=== PATIENT | female | born 1995 | race Caucasian/White ===

== ENCOUNTER 2019-02-02 12:22 | Inpatient (IN) | payer OTHER ==
[2019-02-02 13:12] LABS: ADD MAN DIFF? NO
[2019-02-02] MEDS: FAMOTIDINE 20 MG INJ IV (13:12)
[2019-02-02] MEDS: ONDANSETRON 4 MG INJ IV ×2 (13:12→21:55)
[2019-02-02] MEDS: LORAZEPAM 2 MG INJ IV (13:12)
[2019-02-02] MEDS: SOD CHLORIDE 0.9% 1,000 ML IV ×2 (13:13→21:11)
[2019-02-02 13:14] LABS: BASOPHILS % 0.3 % (0.0-2.0); HEMATOCRIT 40.6 % (37.0-47.0); HEMOGLOBIN 13.6 g/dl (12.0-16.0); LYMPHOCYTES # 1.6 10^3/ul (0.8-2.9); LYMPHOCYTES % 18.1 % (15.0-51.0); MEAN CORPUSCULAR HGB CONC 33.5 g/dl (32.0-37.0); MEAN CORPUSCULAR VOLUME 89.6 fl (82.0-101.0); MEAN PLATELET VOLUME 10.1 fl (7.4-10.4); MONOCYTE # 0.5 10^3/ul (0.3-0.9); MONOCYTES % 5.4 % (0.0-11.0); NEUTROPHIL # 6.7 10^3/ul (1.6-7.5); NEUTROPHILS % 75.6 % (39.0-77.0); PLATELET COUNT 293 10^3/UL (140-415); RED BLOOD COUNT 4.53 10^6/ul (4.20-5.40); RED CELL DISTRIBUTION WIDTH 11.9 % (11.5-14.5)
[2019-02-02 13:14] LABS: WHITE BLOOD COUNT 8.9 10^3/ul (4.8-10.8)
[2019-02-02 13:23] LABS: ADD UMIC YES; UR ASCORBIC ACID NEGATIVE (NEGATIVE); UR BILIRUBIN (Dip) NEGATIVE (NEGATIVE); UR BLOOD (Dip) NEGATIVE (NEGATIVE); UR CLARITY CLEAR (CLEAR); UR COLOR AMBER (YELLOW); UR GLUCOSE (Dip) NEGATIVE (NEGATIVE); UR KETONES (Dip) NEGATIVE (NEGATIVE); UR LEUKOCYTE ESTERASE (Dip) NEGATIVE Leu/ul (NEGATIVE); UR NITRITE (Dip) POSITIVE (NEGATIVE); UR RBC 3 /HPF (0-5); UR SPECIFIC GRAVITY (Dip) 1.017 (1.003-1.030); UR SQUAMOUS EPITHELIAL CELL FEW /HPF (FEW); UR TOTAL PROTEIN (Dip) NEGATIVE (NEGATIVE); UR UROBILINOGEN (Dip) NEGATIVE (NEGATIVE); UR WBC 4 /HPF (0-5)
[2019-02-02 13:33] LABS: ALANINE AMINOTRANSFERASE 15 IU/L (13-69); ALBUMIN 4.5 g/dl (3.3-4.9); ALBUMIN/GLOBULIN RATIO 1.45; ALKALINE PHOSPHATASE 73 IU/L (42-121); ANION GAP 12 (5-13); ASPARTATE AMINO TRANSFERASE 22 IU/L (15-46); BILIRUBIN,INDIRECT 0.7 mg/dl (0-1.1); BILIRUBIN,TOTAL 0.7 mg/dl (0.2-1.3); BLOOD UREA NITROGEN 12 mg/dl (7-20); CALCIUM 9.6 mg/dl (8.4-10.2); CARBON DIOXIDE 22 mmol/L (21-31); CHLORIDE 105 mmol/L (97-110); CREATININE 0.67 mg/dl (0.44-1.00); Estimated GFR > 60 mL/min (>60); GLUCOSE 123 mg/dl (70-220); LIPASE 74 U/L (23-300); POTASSIUM 3.2 mmol/L (3.5-5.1); SODIUM 139 mmol/L (135-144); TOTAL PROTEIN 7.6 g/dl (6.1-8.1)
[2019-02-02 14:39] LABS: PROTIME 13.3 Sec (11.9-14.9)
[2019-02-02 14:40] LABS: PARTIAL THROMBOPLASTIN TIME 32.2 Sec (23.0-35.0)
[2019-02-02] MEDS: POTASSIUM CHLORIDE (SR) 20 MEQ TAB PO (14:48)
[2019-02-02] MEDS: CEPHALEXIN 500 MG CAP PO (14:48)
[2019-02-02] MEDS: ACETYLCYSTEINE INJ 9,000 MG in DEXTROSE 5% 200 ML IV (15:06)
[2019-02-02] MEDS: ACETYLCYSTEINE INJ 3,000 MG in DEXTROSE 5% 500 ML IV (16:10)
[2019-02-02 17:10] LABS: ETHANOL < 10.0 mg/dl (0-0)
[2019-02-02] MEDS: LEVOFLOXACIN 500MG/D5W (PMX) 100 ML IVPB (21:29)
[2019-02-02] MEDS: ACETAMINOPHEN 325 MG TAB PO (21:53)
[2019-02-02] MEDS: ACETYLCYSTEINE INJ 6,000 MG in DEXTROSE 5% 1,000 ML IV (22:18)
[2019-02-03 01:57] LABS: ACETAMINOPHEN < 10.0 ug/ml (10.0-30.0)
[2019-02-03] MEDS: SOD CHLORIDE 0.9% 1,000 ML IV ×2 (05:32→19:10)
[2019-02-03] MEDS: KETOROLAC 15 MG INJ IV ×3 (05:35→23:06)
[2019-02-03 05:49] LABS: ADD MAN DIFF? NO
[2019-02-03 05:51] LABS: HAAIG REFLEX REFLEX FILED
[2019-02-03 05:58] LABS: BASOPHILS % 0.5 % (0.0-2.0); EOSINOPHILS % 0.5 % (0.0-7.0); HEMATOCRIT 40.1 % (37.0-47.0); HEMOGLOBIN 13.6 g/dl (12.0-16.0); LYMPHOCYTES # 1.7 10^3/ul (0.8-2.9); LYMPHOCYTES % 20.4 % (15.0-51.0); MEAN CORPUSCULAR HEMOGLOBIN 30.3 pg (29.0-33.0); MEAN CORPUSCULAR HGB CONC 33.9 g/dl (32.0-37.0); MEAN CORPUSCULAR VOLUME 89.3 fl (82.0-101.0); MEAN PLATELET VOLUME 10.4 fl (7.4-10.4); MONOCYTE # 0.5 10^3/ul (0.3-0.9); MONOCYTES % 6.2 % (0.0-11.0); NEUTROPHIL # 6.1 10^3/ul (1.6-7.5); NEUTROPHILS % 71.9 % (39.0-77.0); PLATELET COUNT 281 10^3/UL (140-415); RED BLOOD COUNT 4.49 10^6/ul (4.20-5.40); RED CELL DISTRIBUTION WIDTH 12.1 % (11.5-14.5)
[2019-02-03 05:58] LABS: WHITE BLOOD COUNT 8.4 10^3/ul (4.8-10.8)
[2019-02-03 06:15] LABS: INR 1.09; PROTIME 14.2 Sec (11.9-14.9); PT RATIO 1.1
[2019-02-03 06:42] LABS: ACETAMINOPHEN < 10.0 ug/ml (10.0-30.0)
[2019-02-03 06:54] LABS: ANION GAP 11 (5-13); BLOOD UREA NITROGEN 4 mg/dl (7-20); CALCIUM 9.7 mg/dl (8.4-10.2); CARBON DIOXIDE 20 mmol/L (21-31); CHLORIDE 109 mmol/L (97-110); CREATININE 0.49 mg/dl (0.44-1.00); Estimated GFR > 60 mL/min (>60); GLUCOSE 95 mg/dl (70-220); POTASSIUM 3.6 mmol/L (3.5-5.1); SODIUM 140 mmol/L (135-144)
[2019-02-03 07:19] LABS: HEPATITIS B SURFACE ANTIGEN NEGATIVE (NEGATIVE)
[2019-02-03 07:37] LABS: HEPATITIS B CORE ANTIBODY NEGATIVE (NEGATIVE); HEPATITIS C VIRAL ANTIBODY NEGATIVE (NEGATIVE)
[2019-02-03] MEDS: PANTOPRAZOLE (EC) 40 MG TAB PO (09:37)
[2019-02-03 12:32] LABS: ADD UMIC YES; UR ASCORBIC ACID NEGATIVE (NEGATIVE); UR BILIRUBIN (Dip) NEGATIVE (NEGATIVE); UR BLOOD (Dip) 1+ mg/dL (NEGATIVE); UR CLARITY CLEAR (CLEAR); UR COLOR YELLOW (YELLOW); UR GLUCOSE (Dip) NEGATIVE (NEGATIVE); UR KETONES (Dip) 2+ mg/dL (NEGATIVE); UR LEUKOCYTE ESTERASE (Dip) 1+ Leu/ul (NEGATIVE); UR NITRITE (Dip) NEGATIVE (NEGATIVE); UR RBC 2 /HPF (0-5); UR SPECIFIC GRAVITY (Dip) 1.012 (1.003-1.030); UR TOTAL PROTEIN (Dip) NEGATIVE (NEGATIVE); UR UROBILINOGEN (Dip) NEGATIVE (NEGATIVE); UR WBC 3 /HPF (0-5)
[2019-02-03 14:05] LABS: ALANINE AMINOTRANSFERASE 14 IU/L (13-69); ALBUMIN 4.1 g/dl (3.3-4.9); ALKALINE PHOSPHATASE 68 IU/L (42-121); ASPARTATE AMINO TRANSFERASE 18 IU/L (15-46); TOTAL PROTEIN 6.9 g/dl (6.1-8.1)
[2019-02-03 15:28] LABS: LIPASE 89 U/L (23-300)
[2019-02-03 15:28] LABS: AMYLASE 87 U/L (11-123)
[2019-02-03 15:32] LABS: ACETAMINOPHEN < 10.0 ug/ml (10.0-30.0)
[2019-02-03] MEDS: LEVOFLOXACIN 500MG/D5W (PMX) 100 ML IVPB (16:51)
[2019-02-04 05:37] LABS: INR 1.07; PT RATIO 1.1
[2019-02-04 05:41] LABS: ALANINE AMINOTRANSFERASE 18 IU/L (13-69); ALBUMIN 4.3 g/dl (3.3-4.9); ALBUMIN/GLOBULIN RATIO 1.48; ALKALINE PHOSPHATASE 60 IU/L (42-121); ANION GAP 11 (5-13); ASPARTATE AMINO TRANSFERASE 20 IU/L (15-46); BLOOD UREA NITROGEN 8 mg/dl (7-20); CALCIUM 9.6 mg/dl (8.4-10.2); CARBON DIOXIDE 22 mmol/L (21-31); CHLORIDE 108 mmol/L (97-110); CREATININE 0.51 mg/dl (0.44-1.00); Estimated GFR > 60 mL/min (>60); GLUCOSE 97 mg/dl (70-220); POTASSIUM 3.9 mmol/L (3.5-5.1); SODIUM 141 mmol/L (135-144); TOTAL PROTEIN 7.2 g/dl (6.1-8.1)
[2019-02-04] MEDS: SOD CHLORIDE 0.9% 1,000 ML IV ×2 (05:58→14:28)
[2019-02-04] MEDS: PANTOPRAZOLE (EC) 40 MG TAB PO (09:00)
[2019-02-04] MEDS: BUPIVACAINE 0.25%/EPI (SDV) 30 ML INJ (12:02)
[2019-02-04] MEDS: LIDOCAINE 1% (MPF) 30 ML INJ (12:02)
[2019-02-04] MEDS: metroNIDAZOLE 500 MG/NS (PMX) 100 ML IVPB (12:22)
[2019-02-04] MEDS ORDERED: PROPOFOL 20 ML (13:02)
[2019-02-04] MEDS ORDERED: LIDOCAINE 2% (SDV) 5 ML INJ (13:02)
[2019-02-04] MEDS ORDERED: GLYCOPYRROLATE 0.4 MG INJ ×2 (13:02→13:31)
[2019-02-04] MEDS ORDERED: MEPERIDINE 100 MG INJ (13:02)
[2019-02-04] MEDS ORDERED: SUCCINYLCHOLINE CHLORIDE 100 MG/5 ML SYG IV (13:02)
[2019-02-04] MEDS ORDERED: NEOSTIGMINE 3 MG/3 ML SYRINGE (13:02)
[2019-02-04] MEDS ORDERED: ROCURONIUM 50 MG INJ (13:02)
[2019-02-04] MEDS ORDERED: CEFAZOLIN 1 GM INJ (13:17)
[2019-02-04] MEDS ORDERED: ONDANSETRON 4 MG INJ (13:31)
[2019-02-04] MEDS ORDERED: METOCLOPRAMIDE 10 MG INJ (13:31)
[2019-02-04] MEDS ORDERED: FENTAnyl 50 MCG/ML VIAL IV ×2 (14:00)
[2019-02-04] MEDS ORDERED: DIPHENHYDRAMINE 50 MG INJ IV (14:00)
[2019-02-04] MEDS ORDERED: HYDROmorphONE 1 MG/5 ML IV SYRINGE IV ×3 (14:00)
[2019-02-04] MEDS ORDERED: HYDROmorphONE 0.5 MG/0.5 ML SYG IV (14:00)
[2019-02-04] MEDS ORDERED: ACETAMINOPHEN 500 MG TAB PO (14:00)
[2019-02-04] MEDS ORDERED: MEPERIDINE 25 MG INJ IV (14:00)
[2019-02-04] MEDS ORDERED: METOCLOPRAMIDE 10 MG INJ IV (14:00)
[2019-02-04] MEDS ORDERED: MIDAZOLAM 1 MG/ML 2 ML INJ IV (14:00)
[2019-02-04] MEDS: ONDANSETRON 4 MG INJ IV (14:15)
[2019-02-04] MEDS: FENTAnyl 50 MCG/ML VIAL IV (14:15)
[2019-02-04] MEDS: HYDROCODONE/APAP (5/325) TAB PO (19:29)
[2019-02-04] MEDS: KETOROLAC 15 MG INJ IV (22:36)
[2019-02-05] MEDS: SOD CHLORIDE 0.9% 1,000 ML IV (02:01)
[2019-02-05] MEDS: HYDROCODONE/APAP (5/325) TAB PO ×2 (07:38→14:08)
[2019-02-05] MEDS ORDERED: SENNA TAB PO (09:04)
[2019-02-05] MEDS: PANTOPRAZOLE (EC) 40 MG TAB PO (09:50)
[2019-02-05] MEDS ORDERED: ONDANSETRON 4 MG INJ IV (10:45)
[2019-02-05] MEDS ORDERED: BISACODYL 10 MG SUPP PR (11:00)
[2019-02-05] MEDS: MAGNESIUM HYDROXIDE 30ML CUP PO (12:59)
[2019-02-05] MEDS: IBUPROFEN 400 MG TAB PO (15:34)
== END 2019-02-05 19:10 | disposition home or self-care (01) | DRG 908 ==
LOC: MS1 02-03 15:12 → FTE 12:22 → MS1 02-04 16:31 → TEL 14:57
PROC: 0DTJ4ZZ Resection of Appendix, Percutaneous Endoscopic Approach (ICD-10-PCS; principal; 2019-02-04 12:00)
DX: T39.1X1A Poisoning by 4-Aminophenol derivatives, accidental (unintentional), initial encounter (principal); N39.0 Urinary tract infection, site not specified; K35.80 Unspecified acute appendicitis; E87.6 Hypokalemia; F10.10 Alcohol abuse, uncomplicated; K38.1 Appendicular concretions; K59.00 Constipation, unspecified
CPT/HCPCS: 36415; 71045; 74176; 76775; 80048; 80053; 80076; 80307; 81001; 81025; 82150; 83690; 85025; 85610; 85730; 86704; 86709; 86803; 87086; 87340; 88304; 93005; 96374; 96375; 99285-25

== ENCOUNTER 2019-03-31 17:10 | Emergency (ER) | payer OTHER ==
[2019-03-31] MEDS: SOD CHLORIDE 0.9% 1,000 ML IV (19:53)
[2019-03-31] MEDS: LEVALBUTEROL (NEB) 1.25 MG/0.5 ML AMP INH (19:58)
[2019-03-31] MEDS: IPRATROPIUM (NEB) 0.5 MG/2.5 ML AMP INH (19:58)
[2019-03-31 20:04] LABS: ADD MAN DIFF? NO
[2019-03-31 20:06] LABS: WHITE BLOOD COUNT 6.8 10^3/ul (4.8-10.8)
[2019-03-31 20:06] LABS: BASOPHILS % 0.4 % (0.0-2.0); EOSINOPHILS # 0.1 10^3/ul (0.0-0.5); EOSINOPHILS % 1.5 % (0.0-7.0); HEMATOCRIT 45.1 % (37.0-47.0); HEMOGLOBIN 14.4 g/dl (12.0-16.0); LYMPHOCYTES # 1.6 10^3/ul (0.8-2.9); LYMPHOCYTES % 22.7 % (15.0-51.0); MEAN CORPUSCULAR HEMOGLOBIN 29.9 pg (29.0-33.0); MEAN CORPUSCULAR HGB CONC 31.9 g/dl (32.0-37.0); MEAN CORPUSCULAR VOLUME 93.6 fl (82.0-101.0); MEAN PLATELET VOLUME 10.5 fl (7.4-10.4); MONOCYTE # 0.6 10^3/ul (0.3-0.9); MONOCYTES % 9.4 % (0.0-11.0); NEUTROPHIL # 4.5 10^3/ul (1.6-7.5); NEUTROPHILS % 65.4 % (39.0-77.0); PLATELET COUNT 272 10^3/UL (140-415); RED BLOOD COUNT 4.82 10^6/ul (4.20-5.40); RED CELL DISTRIBUTION WIDTH 11.9 % (11.5-14.5)
[2019-03-31] MEDS: METHYLPREDNISOLONE 125 MG INJ IV (20:14)
[2019-03-31 20:24] LABS: ANION GAP 9 (5-13); BLOOD UREA NITROGEN 17 mg/dl (7-20); CALCIUM 9.9 mg/dl (8.4-10.2); CARBON DIOXIDE 28 mmol/L (21-31); CHLORIDE 102 mmol/L (97-110); CREATININE 0.65 mg/dl (0.44-1.00); Estimated GFR > 60 mL/min (>60); GLUCOSE 95 mg/dl (70-220); POTASSIUM 4.1 mmol/L (3.5-5.1); SODIUM 139 mmol/L (135-144)
[2019-03-31 20:54] LABS: D-DIMER < 220.00 ng/ml (<460)
== END 2019-03-31 21:36 | disposition home or self-care (01) ==
LOC: FTE 17:10
DX: J45.901 Unspecified asthma with (acute) exacerbation (principal)
CPT/HCPCS: 71045; 80048; 85025; 85378; 94644; 96361; 96374; 99284-25